=== PATIENT | female | born 1980 | race Caucasian/White ===

== ENCOUNTER 2016-11-02 06:01 | Inpatient (IN) | payer OTHER ==
[2016-11-02] MEDS ORDERED: IBUPROFEN 600 MG TAB PO PRN (06:08)
[2016-11-02] MEDS ORDERED: OXYTOCIN/RINGERS LACTATE 1,000 ML IV PRN (06:08)
[2016-11-02] MEDS ORDERED: LIDOCAINE 1% 30 ML SDV SC PRN (06:08)
[2016-11-02] MEDS ORDERED: LR 1,000 ML IV PRN (06:08)
[2016-11-02] MEDS ORDERED: MINERAL OIL 60 ML OIL TP PRN (06:08)
[2016-11-02] MEDS ORDERED: TERBUTALINE SULFATE 1 MG/ML VIAL IV PRN (06:08)
[2016-11-02 06:40] LABS: % IMMATURE GRANULYOCYTES 0.6 % (0.0-1.1); ABSOLUTE IMMATURE GRANULOCYTES 0.07 10^3/uL (0.00-0.10); ADD DIFF? NO; ADD MORPH? NO; ADD SCAN? NO; ATYPICAL LYMPHOCYTE FLAG 0 (0-99); FRAGMENT RBC FLAG 0 (0-99); HEMATOCRIT 38.9 % (38.0-47.0); LEFT SHIFT FLG 0 (0-99); LIPEMIA HEMOLYSIS FLAG 90 (0-99); MEAN CELL VOLUME 83.5 fL (81.5-99.8); MEAN PLATELET VOLUME 11.3 fL (8.7-11.7); PLATELET CLUMPS FLAG 0 (0-99); PLATELET COUNT 183 10^3/uL (150-400); RED BLOOD CELL COUNT 4.66 10^6/uL (4.18-5.33); RED CELL DISTRIBUTION WIDTH 13.5 % (11.5-15.2)
[2016-11-02] MEDS ORDERED: OXYTOCIN/LR *STANDARD DOSE PROTOCOL IV SCH (08:00)
[2016-11-02 08:49] LABS: ALANINE AMINOTRANSFERASE 30 IU/L (9-52); ASPARTATE AMINOTRANSFERASE 33 IU/L (14-46); BILIRUBIN,TOTAL 0.5 mg/dL (0.1-1.4); BILIRUBIN-CONJUGATED 0.2 mg/dL (0.0-0.5); BILIRUBIN-UNCONJUGATED 0.3 mg/dL (0.0-1.1); CREATININE 0.7 mg/dL (0.6-1.0); GLOMERULAR FILTRATION RATE > 60; LACTATE DEHYDROGENASE 555 IU/L (313-618); URIC ACID 6.2 mg/dL (2.5-6.8)
[2016-11-02] MEDS ORDERED: PHENYLEPHRINE HCL 100 MCG/ML SYR ONE ×2 (10:11→13:30)
[2016-11-02] MEDS ORDERED: fentaNYL 2MCG/ML/BUP 0.1% RTU 100 ML BAG EP ONE (10:11)
[2016-11-02] MEDS ORDERED: BUPIVACAINE 0.25% 30 ML SDV ONE (10:11)
--- NOTE | 2016-11-02 10:15 | GHP ---
[f rep st] HISTORY AND PHYSICAL DATE OF ADMISSION: 11/02/2016 ADMISSION DIAGNOSES: 1. Intrauterine at 39 weeks gestation. 2. Polyhydramnios. 3. Umbilical vein varix. HISTORY OF PRESENT ILLNESS: The patient is a 36-year-old, 2, para 1-0-0 -1, who is 39 weeks gestation. She has been followed with maternal medicine and with serial growth ultrasounds due to polyhydramnios and an umbilical vein varix. The patient presents today for induction of labor at 39 weeks for an umbilical vein varix and polyhydramnios. 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 MEDICATIONS: vitamins and iron. SURGICAL HISTORY: Microdiskectomy in 2005, breast biopsy in 2012. ALLERGIES: No known drug allergies. SOCIAL HISTORY: Patient is . She is a [id number] mom. She denies tobacco, alcohol, or drug use. FAMILY MEDICAL HISTORY: Significant for BRCA positive and breast cancer. 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 She is a 2, para 1-0-0-1. In 02/2015, she had a spontaneous vaginal delivery at 40 weeks of a 7 pound, 12 ounce male infant. She had an epidural which did not work that well. Current has been complicated by polyhydramnios and umbilical artery varix, for which she has had increased weekly JOSE DE JESUS and 2 times a week nonstress test. The patient denies any history of any abnormal Pap smears or sexually transmitted diseases. PHYSICAL EXAM: VITAL SIGNS: Stable. GENERAL APPEARANCE: She is alert and oriented x3. HEART: Her heart rate is regularly regular. LUNGS: Clear to auscultation bilaterally. ABDOMEN: Gravid, nondistended, nontender. EXTREMITIES: Reveal no calf tenderness or edema. PELVIC EXAM: She is 3 cm dilated, 70% effaced, and -2 station. heart tracing is difficult secondary to polyhydramnios, but appropriate, appears to be category 1 with occasional variable decelerations. She is having contractions every 3 minutes. Pitocin has been started. Infant is in the vertex presentation. LABORATORY: The patient's labs: Blood type A positive, antibody screen negative. Rubella immune. GBS negative. HBsAg negative. HIV negative. Her 50 g glucose was 99. Verifi screen was negative. ASSESSMENT AND PLAN: A 36-year-old, 2, para 1-0-0-1, at 39 weeks gestation, here for induction of labor for polyhydramnios with umbilical vein varix. The patient has been started on Pitocin. Her membranes have just been ruptured for quite a large amount of copious clear fluid, and patient will receive an epidural when she is ready. /[id number]/MODL MTDD
[2016-11-02] MEDS ORDERED: LR 500 ML IV ONE (12:28)
[2016-11-02] MEDS ORDERED: ceFAZolin 2 GM/DEXTROSE 100 ML IV ONE (12:28)
[2016-11-02] MEDS ORDERED: LR 1,000 ML IV SCH (12:30)
--- NOTE | 2016-11-02 12:31 | OBPROG ---
OBG Progress Note Assessment/Plan: Assessment: Plan: Subjective: patient was checked by nurse 30 minutes ago and was 5-6 and vertex. I just checked patient and did not feel head. bedside US done - baby now transverse. attempted EVC but no amniotic fluid due to AROM. discussion of management options with patient. will proceed with pltcs Objective: 11/02/16 07:00 Patient ABO/Rh A POSITIVE 11/02/16 06:30 Uric Acid 6.2 mg/dL (2.5-6.8) 11/02/16 07:00 Total Bilirubin 0.5 mg/dL (0.1-1.4) 11/02/16 07:00 Conjugated Bilirubin 0.2 mg/dL (0.0-0.5) 11/02/16 07:00 Unconjugated Bilirubin 0.3 mg/dL (0.0-1.1) 11/02/16 07:00 AST 33 IU/L (14-46) 11/02/16 07:00 ALT 30 IU/L (9-52) 11/02/16 07:00 Lactate Dehydrogenase 555 IU/L (313-618) 11/02/16 07:00 - SVE Dilation (cm): 5 Effacement (%): 80 Station: -2 Current Contraction Pattern: Regular FHR Pattern Variability: Moderate FHR Category: 1 Membranes: AROM ICD10 Worksheet Patient Problems: Problems Problem Status Diagnosed (spontaneous vaginal delivery) Acute
[2016-11-02] MEDS ORDERED: CITRIC ACID/SODIUM CITRATE 30 ML UDCUP ONE (12:37)
[2016-11-02] MEDS ORDERED: fentaNYL 100 MCG/2 ML INJ ONE (13:05)
[2016-11-02] MEDS ORDERED: morphINE PF 5 MG/10 ML INJ ONE (13:06)
[2016-11-02] MEDS ORDERED: LIDO/EPI 2% **for epidural** 20 ML SDV ONE (13:07)
[2016-11-02] MEDS ORDERED: OXYTOCIN 100 UNITS/10 ML VIAL ONE (13:09)
[2016-11-02] MEDS ORDERED: ONDANSETRON 4 MG/2 ML VIAL ONE (13:09)
[2016-11-02] MEDS ORDERED: BISACODYL 10 MG SUPP PR PRN (14:14)
[2016-11-02] MEDS ORDERED: POLYETHYLENE GLYCOL 3350 17 GM PKT PO PRN (14:14)
[2016-11-02] MEDS ORDERED: LACTULOSE 20 GM/30 ML UDCUP PO PRN (14:14)
[2016-11-02] MEDS ORDERED: ACETAMINOPHEN 325 MG TAB PO PRN (14:14)
[2016-11-02] MEDS ORDERED: MAGNESIUM HYDROXIDE 30 ML UDCUP PO PRN (14:14)
--- NOTE | 2016-11-02 14:17 | OBPROC ---
- Delivery Pre-op Diagnoses: iup 39 weeks, umbilical vein varix, polyhydramios, transverse presentation after AROM Post-op Diagnoses: same Procedure: Primary, Low Transverse Surgeon: Brooke Hamm Display Decorator: Janneth Han Anesthesiologist: Jaron Ramirez Anesthesia: Epidural Complications: None EBL: 800 - Info A Delivery Date: 11/02/16 Delivery Time: 13:39 Sex of Infant: Female Score (1 Min): 8 Score (5 Min): 9
[2016-11-02] MEDS ORDERED: ONDANSETRON 4 MG/2 ML VIAL IVP PRN (14:24)
[2016-11-02] MEDS ORDERED: fentaNYL 100 MCG/2 ML INJ IVP PRN (14:24)
[2016-11-02] MEDS ORDERED: METOCLOPRAMIDE 10 MG/2 ML VIAL IVP PRN (14:24)
[2016-11-02] MEDS ORDERED: PHENYLEPHRINE HCL 100 MCG/ML SYR IVP PRN (14:24)
[2016-11-02] MEDS ORDERED: MEPERIDINE 25 MG/ML SYR IVP PRN (14:24)
[2016-11-02] MEDS ORDERED: NALOXONE HCL 0.4 MG/ML INJ IVP PRN (14:24)
--- NOTE | 2016-11-02 14:24 | PREANESOB ---
Obstetric Pre-Anesthesia Info - General Info Proposed Procedure: : 2 Para: 1 - Info Status: Full Term, Recinos, Malpresentation Monitors: External FHR Pattern: Reassuring - Labor Status Cervical Dilation per last OB SVE: 5 Station per last OB SVE: -2 PIH: No Magnesium Sulfate in Use: No Section History: Primary Indications for Current Section: Abnormal Lie Labor Epidural: Yes (Plan to use epidural lidocaine/fentanyl/morphine.) Anesthesia Allergies/Adverse Reactions: Allergy/AdvReac Type Severity Reaction Status Date / Time No Known Allergies Allergy Unverified 02/06/15 12:04 Home Medications: Medication Instructions Recorded Ibuprofen [Motrin (*)] 600 mg PO Q6 PRN #30 tab 02/09/15 Visit Medications: Generic Name Dose Route Start Last Admin Trade Name Freq PRN Reason Stop Dose Admin Acetaminophen 325 - 650 mg 11/02/16 14:14 Tylenol PO 05/01/17 14:13 Q3HRS PRN Pain, Mild Acetaminophen/Hydrocodone Bitart 1 - 2 tab 11/02/16 14:14 [place] 5/325 PO 11/12/16 14:13 Q4HRS PRN Pain, Moderate Bisacodyl 10 mg 11/02/16 14:14 Dulcolax Rectal PA 05/01/17 14:13 DAILY PRN Constipation Protocol Citric Acid/Sodium Citrate 30 ml 11/02/16 17:30 Bicitra PO 05/01/17 17:29 ACHS LARRY Lactated Ringer's 1,000 mls @ 0 mls/hr 11/02/16 06:08 Lr IV 05/01/17 06:07 PRN PRN SEE PROTOCOL CONDITIONS Protocol Per Protocol Oxytocin/Lactated Ringer's 1,000 mls @ 150 mls/hr 11/02/16 06:08 Pitocin 20 Units/Lr (Premix) IV PRN PRN Post- bleeding Oxytocin/Lactated Ringer's 500 mls @ 0 mls/hr 11/02/16 08:00 Pitocin 30 Units/Lr (Premix) IV 05/01/17 07:59 CONT LARRY Protocol Per Protocol Lactated Ringer's 1,000 mls @ 125 mls/hr 11/02/16 12:30 Lr IV 05/01/17 12:29 CONT LARRY Ibuprofen 600 mg 11/02/16 06:08 Motrin PO 05/01/17 06:07 ONCE PRN post , inflammation Ibuprofen 600 mg 11/02/16 14:14 Motrin PO 05/01/17 14:13 Q6HRS PRN Pain, Inflammatory/Cramping Ketorolac Tromethamine 30 mg 11/02/16 18:00 Toradol IVP 11/03/16 12:01 Q6HRS LARRY Lactulose 20 gm 11/02/16 14:14 Cephulac PO 05/01/17 14:13 TID PRN Constipation Protocol Magnesium Hydroxide 30 ml 11/02/16 14:14 Milk Of Magnesia PO 05/01/17 14:13 DAILY PRN Constipation Protocol Polyethylene Glycol 17 gm 11/02/16 14:14 Miralax PO 05/01/17 14:13 DAILY PRN Constipation, patient prefers Protocol Senna/Docusate Sodium 1 - 2 tab 11/02/16 21:00 Senokot-S PO 05/01/17 20:59 BID LARRY Protocol Terbutaline Sulfate 0.25 mg 11/02/16 06:08 Brethine IV 05/01/17 06:07 ONCE PRN Tachysystole Discontinued Medications Generic Name Dose Route Start Last Admin Trade Name Freq PRN Reason Stop Dose Admin Bupivacaine HCl Confirm 11/02/16 10:11 Sensorcaine 0.25% Sdv Administered 11/02/16 10:12 Dose 30 ml .ROUTE .STK-MED ONE Citric Acid/Sodium Citrate Confirm 11/02/16 12:37 Bicitra Administered 11/02/16 12:38 Dose 30 ml .ROUTE .STK-MED ONE Fentanyl Confirm 11/02/16 13:05 Sublimaze Administered 11/02/16 13:06 Dose 100 mcg .ROUTE .STK-MED ONE Fentanyl/Bupivacaine HCl Confirm 11/02/16 10:11 Fentanyl/Bupivacaine/Ns 2 Mcg/Ml 0.1% (Premix Administered 11/02/16 10:12 Dose 100 ml EP .STK-MED ONE Cefazolin Sodium/Dextrose 100 mls @ 200 mls/hr 11/02/16 12:28 Ancef 2 Gm (Premix) IV 11/02/16 12:57 ONCALL ONE Protocol Lactated Ringer's 500 mls @ 0 mls/hr 11/02/16 12:28 Lr IV 11/02/16 12:29 ONCE ONE As Directed Lidocaine HCl 30 ml 11/02/16 06:08 Lidocaine Hcl 1% SC 11/02/16 12:08 ONCE PRN Episiotomy Lidocaine/Epinephrine Confirm 11/02/16 13:07 Xylocaine 2%-Epi 1:200,000 Administered 11/02/16 13:08 Dose 20 ml .ROUTE .STK-MED ONE Mineral Oil 30 ml 11/02/16 06:08 Mineral Oil TP 11/02/16 12:08 ONCE PRN Cervical Ripening Morphine Sulfate Confirm 11/02/16 13:06 Morphine Pf 5 Mg/10 Ml Administered 11/02/16 13:07 Dose 5 mg .ROUTE .STK-MED ONE Ondansetron HCl Confirm 11/02/16 13:09 Zofran Administered 11/02/16 13:10 Dose 4 mg .ROUTE .STK-MED ONE Oxytocin Confirm 11/02/16 13:09 Pitocin Administered 11/02/16 13:10 Dose 100 units .ROUTE .STK-MED ONE Phenylephrine HCl Confirm 11/02/16 10:11 Magnus-Synephrine Administered 11/02/16 10:12 Dose 1,000 mcg .ROUTE .STK-MED ONE Phenylephrine HCl Confirm 11/02/16 13:30 Magnus-Synephrine Administered 11/02/16 13:31 Dose 1,000 mcg .ROUTE .STK-MED ONE - Focused Exam Height/Weight (Nursing): Height 162.56 cm Weight 80.286 kg Labs: 11/02/16 07:00 Patient ABO/Rh A POSITIVE 11/02/16 06:30 Uric Acid 6.2 mg/dL (2.5-6.8) 11/02/16 07:00 Total Bilirubin 0.5 mg/dL (0.1-1.4) 11/02/16 07:00 Conjugated Bilirubin 0.2 mg/dL (0.0-0.5) 11/02/16 07:00 Unconjugated Bilirubin 0.3 mg/dL (0.0-1.1) 11/02/16 07:00 AST 33 IU/L (14-46) 11/02/16 07:00 ALT 30 IU/L (9-52) 11/02/16 07:00 Lactate Dehydrogenase 555 IU/L (313-618) 11/02/16 07:00
--- NOTE | 2016-11-02 14:26 | POSTANESTH ---
Post Anesthetic Evaluation Cardiovascular Status: Normal, Stable, Similar to Pre-Op Cond Respiratory Status: Normal, Stable, Similar to Pre-op Cond. Level of Consciousness/Mental Status: Can Participate in Eval, Alert and Oriented Pain Control: Adequate, Prn Tx Ordered Nausea/Vomiting Control: Adequate, Prn Tx Ordered Complications Possibly Related to Anesthesia: None Noted
[2016-11-02] MEDS ORDERED: KETOROLAC 30 MG/1 ML SDV ONE (15:29)
[2016-11-02] MEDS: KETOROLAC 30 MG/1 ML SDV IVP SCH ×2 (15:37→21:41)
[2016-11-02] MEDS ORDERED: CITRIC ACID/SODIUM CITRATE 30 ML UDCUP PO SCH (17:30)
--- NOTE | 2016-11-02 17:36 | GOP ---
[f rep st] OPERATIVE REPORT DATE OF OPERATION: 11/02/2016 SURGEON: Brooke Hamm DO MARINATOR: GALA Singh ANESTHESIA: Epidural with Duramorph. ANESTHESIOLOGIST: Jaron Ramirez MD PREOPERATIVE DIAGNOSIS: 1. Intrauterine at 39 weeks. 2. Umbilical vein varix, polyhydramnios, transverse presentation after artificial rupture of membran es. POSTOPERATIVE DIAGNOSIS: 1. Intrauterine at 39 weeks. 2. Umbilical vein varix, polyhydramnios, transverse presentation after artificial rupture of membran es. PROCEDURE PERFORMED: Primary low transverse section. FINDINGS: 1. Viable female in the transverse presentation with elbow being the presenti ng part, delivered at 1339, Apgars of 8 and 9. 2. Intact placenta with 3-vessel cord. 3. Normal ovaries, uterus, and tubes. ESTIMATED BLOOD LOSS: 800 cc. INDICATIONS: The patient is a 36-year-old 2 para 1-0-0-1, who is 39 weeks' gestation. She h as been followed in this with serial ultrasounds and nonstress tests because of an umbilica l vein varix and polyhydramnios. The patient was brought in for induction of labor as per the recomm endation of Maternal Medicine today because of the potential increased risk of stillbirth for i nfants with umbilical vein varix. She was brought in and started on Pitocin. She was 3 cm dilated, 70% effaced, and -2 station. On presentation, the was in the vertex presentation. The patien t was started on Pitocin. The head was down within the pelvis. Membranes were artificially ruptured . A copious amount of clear fluid was noted. The head was then well applied to the cervix. The pat ient received an epidural, which provided adequate pain relief. She was rechecked several hours late r by the nurse, who said that the patient's cervix was 5-6 cm dilated but -2 station. Scalp stimulat ion was done at that time, and the was in the vertex presentation. The patient was re-examine d 40 minutes later and I no longer felt the head. A bony prominence was noted to be sticking through into the lower pelvis. Abdominal ultrasound was performed, which showed the infant to be in the tra nsverse presentation. An attempt was made at version of the to the cephalic presentation. Tommy pro, because artificial rupture of membranes had already occurred, the baby did not move. A decisi on was made to proceed with a primary low transverse section at that time. The patient was given risks and benefits of the procedure. DESCRIPTION OF PROCEDURE: The patient was taken to the operating room with intravenous fluids in marilyn ce. Her epidural was bolused. She was given 2 g of Ancef. Venodynes were placed on her lower extre mities and a Vicente catheter was already in place. She was then prepped and draped in the normal ster ile fashion. Anesthesia was assessed and found to be adequate. A Pfannenstiel skin incision was the n made 2 fingerbreadths above the pubic symphysis. The incision was then carried through to the unde rlying layer of fascia with the Bovie. The fascia was then nicked in the midline and the fascial inc ision was extended laterally. The superior aspect of the fascial incision was then grasped with Rosio salinas, tented up, and the underlying rectus muscle dissected off bluntly with the Bovie. Attention wa s then turned to the inferior aspect of the fascial incision, which, in a similar fashion, was graspe d with Ranjith, tented up, and the underlying rectus muscle dissected off bluntly with the Bovie. Th e rectus muscle was then in the midline. The peritoneum was then identified, tented up, an d entered sharply with Metzenbaum scissors. The incision was extended superiorly and inferiorly with excellent visualization of the bladder. The bladder blade was then inserted. The vesicouterine per itoneum was then identified, tented up, and entered sharply with the Metzenbaum scissors. The incisi on was extended laterally, and the bladder flap was created digitally. The bladder blade was then re inserted and the uterus was then incised in low transverse fashion with the scalpel and the incision was then extended laterally with the bandage scissors. The infant's elbow was noted to be the presen ting part. The arm was then reduced and an internal version was performed of the to bring the head down to the incision. The head was delivered without difficulty, immediately followed by the i nfant's foot. The remainder of the was then delivered without difficulty. The cord was clamp ed x2 and cut. Cord blood was obtained and the infant was handed off to awaiting nurse prac titioner. Intact placenta with 3-vessel cord delivered without difficulty. The uterus was exteriori zed and cleared of all clots and debris. The uterus was then wrapped in a moist laparotomy sponge. 0 Vicryl suture was then used to close the hysterotomy. A second 0 Vicryl stitch was used to imbrica te the uterine incision. The ovaries and tubes were carefully inspected. The patient is BRCA positi ve and is planning on having BSO performed in the middle of 2016. She declines having any procedures done at this time with regard to that. The uterus was then returned to the patient's abdomen. The gutters were cleared of all clots and debris. The hysterotomy remained hemostatic. Peritoneum was r eapproximated with 3-0 Vicryl in a running fashion. Rectus muscle was reapproximated with 2-0 Vicryl in a running fashion. Subcutaneous tissue was found to be hemostatic. Fascia was closed with 0 Logan ryl in a running fashion. Angle's fascia was reapproximated and subcuticular fascia was reapproxima rolly. Sponge, lap, and needle counts were correct x2. The patient was transferred to the recovery ro in stable condition. /[id number]/MODL
--- NOTE | 2016-11-02 18:43 | SOAPPROG ---
SOAP Progress Note Assessment/Plan: Assessment: pod# 0 s/p PLTCS transverse after AROM Plan: routine post operative course 11/02/16 18:41 Subjective: patient is doing well. having a little nausea. pain well controlled. tolerating clears. breast feeding Objective: Vital Signs Temp Pulse Resp BP Pulse Ox 37.1 C 73 16 113/74 96 11/02/16 18:05 11/02/16 18:05 11/02/16 18:05 11/02/16 18:05 11/02/16 18:05 Laboratory Results 11/02/16 07:00 11/02/16 07:00 11/01/16 11/02/16 11/03/16 05:59 05:59 05:59 Intake Total 1800 Output Total 800 Balance 1000 Physical Exam - Physical Exam General Appearance: WD/WN, alert, no apparent distress Respiratory: chest non-tender, lungs clear, normal breath sounds Cardiac/Chest: normal peripheral pulses, regular rate, rhythm Abdomen: normal bowel sounds, non-tender, soft, other (fundus firm and non tender) Skin: normal color, warm/dry, other (incision covered) Extremities: normal range of motion, non-tender, normal inspection, normal capillary refill Neuro/Psych: no motor/sensory deficits, alert, normal mood/affect, oriented x 3 ICD10 Worksheet Patient Problems: Problems Problem Status Diagnosed (spontaneous vaginal delivery) Acute
[2016-11-02] MEDS: SENNOSIDES/DOCUSATE SODIUM TAB PO SCH (22:30)
[2016-11-03] MEDS: KETOROLAC 30 MG/1 ML SDV IVP SCH ×2 (03:35→12:35)
--- NOTE | 2016-11-03 10:54 | SOAPPROG ---
SOAP Progress Note Assessment/Plan: Assessment: pod# 1 s/p PLTCS transverse after AROM anemia breast feeding Plan: routine post operative course iron 11/03/16 10:53 Subjective: patient is doing well. pain is well controlled. normal lochia. rankin still is in. stood at bedside last night. more uncomfortable than expected. not passing gas yet but feels it rumbling. denies headache and changes in vision. Objective: Vital Signs Temp Pulse Resp BP Pulse Ox 37.1 C 76 16 105/66 94 11/03/16 08:00 11/03/16 08:00 11/03/16 08:00 11/03/16 08:00 11/03/16 08:00 Laboratory Results 11/03/16 03:50 11/02/16 07:00 11/02/16 11/03/16 11/04/16 05:59 05:59 05:59 Intake Total 1800 Output Total 1750 450 Balance 50 -450 Physical Exam - Physical Exam General Appearance: WD/WN, alert, no apparent distress Respiratory: chest non-tender, lungs clear Cardiac/Chest: normal peripheral pulses, regular rate, rhythm Abdomen: normal bowel sounds, non-tender, soft Skin: normal color, warm/dry, other (incision covered) Extremities: normal range of motion, non-tender, normal inspection, normal capillary refill Neuro/Psych: no motor/sensory deficits, alert, normal mood/affect, oriented x 3 ICD10 Worksheet Patient Problems: Problems Problem Status Diagnosed (spontaneous vaginal delivery) Acute
[2016-11-03] MEDS: SENNOSIDES/DOCUSATE SODIUM TAB PO SCH ×2 (17:52→18:14)
[2016-11-03] MEDS: IBUPROFEN 600 MG TAB PO PRN (18:11)
[2016-11-03] MEDS: HYDROCODONE/APAP 5/325 TAB PO PRN (20:37)
[2016-11-04] MEDS: IBUPROFEN 600 MG TAB PO PRN ×4 (01:16→21:00)
[2016-11-04] MEDS: HYDROCODONE/APAP 5/325 TAB PO PRN ×5 (01:16→21:00)
[2016-11-04] MEDS: SENNOSIDES/DOCUSATE SODIUM TAB PO SCH ×2 (09:36→20:59)
[2016-11-04] MEDS: IRON POLYSAC/IRON HEME 28 MG TAB PO SCH (09:36)
--- NOTE | 2016-11-04 09:47 | SOAPPROG ---
SOAP Progress Note Assessment/Plan: Assessment: pod# 2 s/p PLTCS transverse after AROM anemia breast feeding Plan: routine post operative and post care iron 11/04/16 09:46 Subjective: patient is doing well. pain is well controlled. passing gas. normal lochia. working on breast feeding. ambulating. voiding without difficulty. mood is good. Objective: Vital Signs Temp Pulse Resp BP Pulse Ox 36.7 C 88 18 117/87 H 98 11/04/16 01:32 11/04/16 01:32 11/04/16 01:32 11/04/16 01:32 11/04/16 01:32 Laboratory Results 11/03/16 03:50 11/02/16 07:00 11/03/16 11/04/16 11/05/16 05:59 05:59 05:59 Intake Total 1800 Output Total 1750 2150 Balance 50 -2150 Physical Exam - Physical Exam General Appearance: WD/WN, alert, no apparent distress Respiratory: chest non-tender, lungs clear, normal breath sounds Cardiac/Chest: normal peripheral pulses, regular rate, rhythm Abdomen: normal bowel sounds, non-tender, soft, other (fundus firm and non tender) Skin: normal color, warm/dry Extremities: normal range of motion, non-tender, normal inspection, normal capillary refill Neuro/Psych: no motor/sensory deficits, alert, normal mood/affect, oriented x 3 ICD10 Worksheet Patient Problems: Problems Problem Status Diagnosed (spontaneous vaginal delivery) Acute
[2016-11-04 22:13] VITALS: RESP 18
[2016-11-05] MEDS: HYDROCODONE/APAP 5/325 TAB PO PRN (01:50)
[2016-11-05] MEDS: IBUPROFEN 600 MG TAB PO PRN (06:25)
[2016-11-05 08:53] VITALS: BP 111/78; PULSE 71; TEMP 98.2; O2SAT 95
[2016-11-05] MEDS: SENNOSIDES/DOCUSATE SODIUM TAB PO SCH (09:18)
[2016-11-05] MEDS: IRON POLYSAC/IRON HEME 28 MG TAB PO SCH (09:18)
--- NOTE | 2016-11-05 11:20 | SOAPPROG ---
SOAP Progress Note Assessment/Plan: Assessment: pod# 3 s/p PLTCS transverse after AROM anemia breast feeding hx baby blues - mood stable today Plan: routine post operative and post care iron discharge instructions mood precautions 11/05/16 11:17 Subjective: patient is doing well. mood overall doing well. pain is well controlled. normal lochia. breast feeding is going well. denies headache and changes in vision. ambulating. passing gas. no bowel movement yet. took miralax today. voiding without difficulty. Objective: Vital Signs Temp Pulse Resp BP Pulse Ox 36.8 C 71 18 111/78 95 11/05/16 08:00 11/05/16 08:00 11/05/16 08:00 11/05/16 08:00 11/05/16 08:00 Laboratory Results 11/03/16 03:50 11/02/16 07:00 11/04/16 11/05/16 11/06/16 05:59 05:59 05:59 Output Total 2150 Balance -2150 Physical Exam - Physical Exam General Appearance: WD/WN, alert, no apparent distress Respiratory: chest non-tender, lungs clear, normal breath sounds Cardiac/Chest: normal peripheral pulses, regular rate, rhythm Abdomen: normal bowel sounds, soft, other (fundus firm and non tender) Skin: normal color, warm/dry Extremities: normal range of motion, non-tender, normal inspection, normal capillary refill Neuro/Psych: no motor/sensory deficits, alert, normal mood/affect, oriented x 3 ICD10 Worksheet Patient Problems: Problems Problem Status Diagnosed (spontaneous vaginal delivery) Acute
== END 2016-11-05 12:45 | disposition home or self-care (01) | DRG 766 ==
LOC: FLD 06:01 → FOB 16:47
PROVIDERS: ADMIT Obstetrics & Gynecology; ATTEND Obstetrics & Gynecology
PROC: 10907ZC Drainage of Amniotic Fluid, Therapeutic from Products of Conception, Via Natural or Artificial Opening (ICD-10-PCS; principal; 2016-11-02)
PROC: 10D00Z1 Extraction of Products of Conception, Low, Open Approach (ICD-10-PCS; principal; 2016-11-02)
DX: O40.3XX0 Polyhydramnios, third trimester, not applicable or unspecified (principal); Z37.0 Single live birth; Z3A.39 39 weeks gestation of pregnancy; O22.03 Varicose veins of lower extremity in pregnancy, third trimester; O32.2XX0 Maternal care for transverse and oblique lie, not applicable or unspecified
CPT/HCPCS: J0690; J1885; J2274; J2370; J2405; J2590; J3010

== ENCOUNTER 2018-07-28 08:15 | Observation (INO) | payer OTHER ==
[2018-08-05] MEDS ORDERED: ceFAZolin 2 GM/DEXTROSE 100 ML IV ONE (05:50)
[2018-08-05] MEDS ORDERED: LR 1,000 ML IV ONE (05:51)
[2018-08-05] MEDS ORDERED: BUPIVACAINE 0.5% 30 ML SDV ONE (06:27)
--- NOTE | 2018-08-05 06:43 | PDANEPAE ---
ANE History of Present Illness Laparoscopic hysterectomy ANE Past Medical History - Cardiovascular History Hx Hypertension: No Hx Arrhythmias: No Hx Chest Pain: No Hx Coronary Artery / Peripheral Vascular Disease: No Hx CHF / Valvular Disease: No Hx Palpitations: No - Pulmonary History Hx COPD: No Hx Asthma/Reactive Airway Disease: No Hx Recent Upper Respiratory Infection: No Hx Oxygen in Use at Home: No Hx Sleep Apnea: No Sleep Apnea Screening Result - Last Documented: Negative - Neurologic History Hx Cerebrovascular Accident: No Hx Seizures: No Hx Dementia: No - Endocrine History Hx Diabetes: No - Renal History Hx Renal Disorders: No - Liver History Hx Hepatic Disorders: No - Neurological & Psychiatric Hx Hx Neurological and Psychiatric Disorders: Yes Neurological / Psychiatric History Comment: anxiety. post depression - Cancer History Hx Cancer: No - Congenital Disorder History Hx Congenital Disorders: No - GI History Hx Gastrointestinal Disorders: No - Other Health History Other Health History: wears glasses - Chronic Pain History Chronic Pain: No - Surgical History Prior Surgeries: bilat mastectomy 03/03/18. reconstruction 05/13/18. ANE Review of Systems Review of Systems: - Exercise capacity METS (RN): 4 METS ANE Patient History - Allergies Allergies/Adverse Reactions: morphine Allergy (Verified 07/01/18 13:49) Itching - Home Medications Home medications: home medication list seen and reviewed Home Medications: ALPRAZolam [Xanax 1 MG (*)] 1 mg PO DAILY PRN 06/25/18 [Last Taken 08/05/18] Herbals/Supplements -Info Only 1 ea PO DAILY 06/25/18 [Last Taken 07/29/18] - NPO status NPO Status: no food or drink >8 hours NPO Since - Liquids (Date): 08/05/18 NPO Since - Liquids (Time): 03:00 NPO Since - Solids (Date): 08/04/18 NPO Since - Solids (Time): 20:00 - Anes Hx Anes Hx: no prior problems - Smoking Hx Smoking Status: Never smoked - Alcohol Use Alcohol Use: None - Family Anes Hx Family Anes Hx: none Family Hx Anesthesia Complications: none ANE Labs/Vital Signs - Vital Signs Blood Pressure: 110/71 Heart Rate: 74 Respiratory Rate: 14 O2 Sat (%): 95 Height: 162.56 cm Weight: 74.843 kg ANE Physical Exam - Airway Neck exam: FROM Mallampati Score: Class 2 Mouth exam: normal dental/mouth exam - Pulmonary Pulmonary: no respiratory distress, clear to auscultation - Cardiovascular Cardiovascular: regular rate and rhythym, no murmur, rub, or gallop - ASA Status ASA Status: II ANE Anesthesia Plan Anesthesia Plan: general endotracheal anesthesia
[2018-08-05] MEDS ORDERED: MIDAZOLAM 2 MG/2 ML VIAL IVP ONE (06:44)
[2018-08-05] MEDS ORDERED: fentaNYL 100 MCG/2 ML INJ ONE ×3 (06:50→09:59)
[2018-08-05] MEDS ORDERED: LIDOCAINE 2% 100 MG/5 ML SYR ONE (06:50)
[2018-08-05] MEDS ORDERED: PROPOFOL 200 MG/20 ML VIAL ONE (06:50)
[2018-08-05] MEDS ORDERED: ROCURONIUM 100 MG/10 ML VIAL ONE (06:50)
--- NOTE | 2018-08-05 07:17 | PDHPUP ---
History & Physical Update H&P update statement: This history and physical update is based on an assessment of the patient which was completed after admission or registration (within 24 hours), but prior to the surgery/procedure. H&P update: H&P reviewed & patient examined, no change in patient's condition since H&P completed
[2018-08-05] MEDS ORDERED: METHYLENE BLUE 0.5% 50 MG/10 ML AMP ONE (08:57)
[2018-08-05] MEDS ORDERED: NALOXONE HCL 0.4 MG/ML INJ IVP PRN (09:26)
[2018-08-05] MEDS ORDERED: HYDROmorphONE/DILAUDID 2 MG/ML INJ IVP PRN (09:26)
[2018-08-05] MEDS ORDERED: ACETAMINOPHEN 500 MG TAB PO PRN (09:26)
[2018-08-05] MEDS ORDERED: ONDANSETRON 4 MG/2 ML VIAL IVP PRN (09:26)
[2018-08-05] MEDS ORDERED: fentaNYL 100 MCG/2 ML INJ IVP PRN (09:26)
[2018-08-05] MEDS ORDERED: KETOROLAC 30 MG/1 ML SDV ONE (09:43)
[2018-08-05] MEDS ORDERED: ONDANSETRON DISINTEGRATING 4 MG TAB PO PRN (09:44)
[2018-08-05] MEDS ORDERED: KETOROLAC 30 MG/1 ML SDV IVP ONE (09:44)
[2018-08-05] MEDS ORDERED: diphenhydrAMINE 25 MG CAP PO PRN (09:48)
[2018-08-05] MEDS ORDERED: ALPRAZolam 1 MG TAB PO PRN (09:48)
[2018-08-05] MEDS ORDERED: PROMETHAZINE HCL 25 MG/ML INJ ONE (09:59)
[2018-08-05] MEDS ORDERED: LR 1,000 ML IV SCH (10:00)
[2018-08-05] MEDS: PROMETHAZINE HCL 25 MG/ML INJ IVP PRN ×2 (10:03→10:14)
[2018-08-05] MEDS: HYDROCODONE/APAP 5/325 TAB PO PRN ×2 (13:22→19:32)
[2018-08-05] MEDS: IBUPROFEN 600 MG TAB PO SCH ×2 (15:59→22:09)
[2018-08-05] MEDS ORDERED: LACTULOSE 20 GM/30 ML UDCUP PO PRN (17:06)
[2018-08-05] MEDS ORDERED: POLYETHYLENE GLYCOL 3350 17 GM PKT PO PRN (17:06)
[2018-08-05] MEDS ORDERED: BISACODYL 10 MG SUPP PR PRN (17:06)
[2018-08-05] MEDS ORDERED: MAGNESIUM HYDROXIDE 30 ML UDCUP PO PRN (17:06)
--- NOTE | 2018-08-05 17:09 | SOAPPROG ---
SOAP Progress Note Assessment/Plan: Assessment: pod# 0 s/p TLH BSO peritoneal washings for BRCA 1 uncomplicated post operative course routine post operative care 08/05/18 17:06 Subjective: patient is doing well. was having post operative nausea which has resolved with zofran. pain overall well controlled. scant vaginal bleeding. voiding without difficulty. ambulating to bathroom. denies hot flashes. no concerns. Objective: Vital Signs Temp Pulse Resp BP Pulse Ox 37.1 C 78 16 103/64 92 08/05/18 14:15 08/05/18 14:15 08/05/18 14:15 08/05/18 14:15 08/05/18 14:15 08/04/18 08/05/18 08/06/18 05:59 05:59 05:59 Intake Total 725 Balance 725 Physical Exam - Physical Exam General Appearance: WD/WN, alert, no apparent distress Neck: non-tender, full range of motion Respiratory: chest non-tender, lungs clear, normal breath sounds Cardiac/Chest: normal peripheral pulses, regular rate, rhythm Abdomen: normal bowel sounds, soft, other (appropriately tender) Skin: normal color, warm/dry Extremities: normal range of motion, non-tender, normal inspection, normal capillary refill Neuro/Psych: no motor/sensory deficits, alert, normal mood/affect, oriented x 3 ICD10 Worksheet Patient Problems: Problems Problem Status Onset (spontaneous vaginal delivery) Acute
[2018-08-05] MEDS: SENNOSIDES/DOCUSATE SODIUM TAB PO SCH (19:31)
[2018-08-06] MEDS: IBUPROFEN 600 MG TAB PO SCH ×2 (03:51→10:19)
[2018-08-06 08:48] VITALS: BP 99/70
[2018-08-06] MEDS: SENNOSIDES/DOCUSATE SODIUM TAB PO SCH (10:18)
--- NOTE | 2018-08-08 08:07 | GDS ---
ADMISSION DIAGNOSIS: BRCA1 positive. DISCHARGE DIAGNOSES: 1. BRCA1 positive. 2. Status post total laparoscopic hysterectomy with bilateral salpingo- oophorectomy. HISTORY: The patient is a 38-year-old, para 2, who was diagnosed as being BRCA positive several years ago. She had undergone mastectomy and breast reconstructive surgery and presented requesting definitive therapy with a total laparoscopic hysterectomy with bilateral salpingo-oophorectomy and peritoneal washing. Surgery was uncomplicated. Her postop course was initially complicated by some nausea and dizziness, however, that resolved with Zofran. Patient was able to tolerate diet, void without difficulty, and was ambulating without difficulty. She had no vaginal bleeding. On postoperative day #1, patient continued to be doing well. Her pain was well controlled. She was voiding without difficulty and ambulating without problems. She was tolerating regular diet, and had no vaginal bleeding. The patient was discharged to home on postoperative day #1. She was instructed to follow up in the office in 2 and 6 weeks for postoperative visits. She was instructed to have nothing in the vagina for 9 weeks and to call if she had any bleeding greater than a pad an hour, or a fever greater than 100.5 or abdominal pain or chills. The patient was given a prescription for ibuprofen and [place], 14 [place] and 30 ibuprofen. She was given instructions on how to take those. The patient was discharged to home. /[id number]/MODL MTDD
== END 2018-08-06 11:15 | disposition home or self-care (01) ==
LOC: F3E 08-05 05:10 → FOB 08-05 11:12
PROVIDERS: ADMIT Obstetrics & Gynecology; ATTEND Obstetrics & Gynecology
PROC: 0UT24ZZ Resection of Bilateral Ovaries, Percutaneous Endoscopic Approach (ICD-10-PCS; principal; 2018-08-05 07:15)
PROC: 0UTC4ZZ Resection of Cervix, Percutaneous Endoscopic Approach (ICD-10-PCS; principal; 2018-08-05 07:15)
PROC: 0D9W4ZX Drainage of Peritoneum, Percutaneous Endoscopic Approach, Diagnostic (ICD-10-PCS; principal; 2018-08-05 07:15)
PROC: 0UT74ZZ Resection of Bilateral Fallopian Tubes, Percutaneous Endoscopic Approach (ICD-10-PCS; principal; 2018-08-05 07:15)
PROC: 0UT94ZZ Resection of Uterus, Percutaneous Endoscopic Approach (ICD-10-PCS; principal; 2018-08-05 07:15)
DX: Z15.01 Genetic susceptibility to malignant neoplasm of breast (principal); Z90.13 Acquired absence of bilateral breasts and nipples
CPT/HCPCS: 58571; G0378; J0690; J1885; J2001; J2250; J2550; J2704; J3010; Q9968